=== PATIENT | male | born 1960 | race Caucasian/White ===

== ENCOUNTER 2019-10-20 09:14 | Emergency (ER) | payer MEDICAID ==
[~2019-10-20] VITALS: Ht 167.6 cm; Wt 75.0 kg
[2019-10-20] MEDS ORDERED: AMLO2.5T45 PO (09:22)
[2019-10-20 10:06] LABS: BASOPHILS % 0.7 % (0.0-2.0); EOSINOPHILS % 4.1 % (0.0-5.0); HEMATOCRIT. 39.2 % (42.0-52.0); HEMOGLOBIN. 13.2 g/dL (14.0-18.0); LYMPHOCYTES % 18.9 % (20.0-50.0); MEAN CORPUSCULAR VOLUME 89.2 fL (80.0-94.0); MEAN PLATELET VOLUME 8.5 fl (7.4-10.4); MONOCYTES % 8.6 % (2.0-8.0); NEUTROPHILS % 67.7 % (40.0-76.0); PLATELET 235 x1000/uL (130-400)
[2019-10-20 10:13] LABS: CHLORIDE 109 mEq/L (98-107)
[2019-10-20 11:03] LABS: CLARITY URINE CLEAR (CLEAR); COLOR URINE YELLOW (YELLOW); KETONES URINE NEGATIVE (NEGATIVE); LEUKOCYTE ESTERASE URINE NEGATIVE (NEGATIVE); NITRITE URINE NEGATIVE (NEGATIVE); OCCULT BLOOD URINE TRACE (NEGATIVE); PH URINE 5.5 (4.5-8.0); PROTEIN URINE 3+ (NEGATIVE); SPECIFIC GRAVITY URINE 1.016 (1.005-1.030); UROBILINOGEN URINE 0.2 E.U./dL (0.2-1.0)
[2019-10-20 12:18] VITALS: BP 167/89
== END 2019-10-20 12:22 | disposition home or self-care (01) ==
LOC: ER 09:14
DX: E11.65 Type 2 diabetes mellitus with hyperglycemia (principal); N28.9 Disorder of kidney and ureter, unspecified; R42 Dizziness and giddiness; I10 Essential (primary) hypertension
CPT/HCPCS: 36415; 71045; 80053; 81003; 85025; 99284

== ENCOUNTER 2022-03-31 09:12 | Emergency (ER) | payer MEDICAID ==
[~2022-03-31] VITALS: Ht 152.4 cm; Wt 68.0 kg
[~2022-03-31 09:12] MED LIST: AMLO2.5T45 PO
[2022-03-31 10:03] VITALS: BP 171/67
[2022-03-31] MEDS ORDERED: FAMOTIDINE 20MG/2ML VIAL IV STA (10:03)
[2022-03-31] MEDS ORDERED: MORPHINE SULFATE 4 MG/ML CPJ (NOT FOR IM USE) IV STA (10:03)
[2022-03-31] MEDS ORDERED: PANTOPRAZOLE SODIUM 40 MG/VIAL IV STA (10:03)
[2022-03-31] MEDS ORDERED: MAGNESIUM/ALUMINUM HYDROXIDE/SIMETHICONE 30ML UDC PO STA (10:03)
[2022-03-31] MEDS ORDERED: ONDANSETRON HCL 4MG/2ML INJ IV STA (10:03)
[2022-03-31] MEDS ORDERED: SODIUM CHLORIDE 0.9% 1,000 ML IV ONE (10:15)
[2022-03-31 12:10] LABS: BASOPHILS % 0.6 % (0.0-2.0); EOSINOPHILS % 3.4 % (0.0-5.0); HEMATOCRIT. 39.9 % (42.0-52.0); HEMOGLOBIN. 13.2 g/dL (14.0-18.0); LYMPHOCYTES % 13.7 % (20.0-50.0); MEAN CORPUSCULAR HEMOGLOBIN 30.3 pg (28.0-32.0); MEAN CORPUSCULAR VOLUME 91.1 fL (80.0-94.0); MEAN PLATELET VOLUME 8.5 fl (7.4-10.4); MONOCYTES % 11.7 % (2.0-8.0); NEUTROPHILS % 70.6 % (40.0-76.0); PLATELET 244 x1000/uL (130-400); RED BLOOD CELL COUNT 4.37 mill/uL (4.7-6.1); RED CELL DISTRIBUTION WIDTH 12.8 % (11.6-14.6)
[2022-03-31 12:18] LABS: CHLORIDE 112 mEq/L (98-107)
[2022-03-31] MEDS ORDERED: FAMOTIDINE 20MG/2ML VIAL IV NR (13:15)
[2022-03-31] MEDS ORDERED: FAMO-135 PO (13:46)
== END 2022-03-31 14:40 | disposition home or self-care (01) ==
LOC: ER 09:16
DX: R10.13 Epigastric pain (principal); K21.9 Gastro-esophageal reflux disease without esophagitis; I10 Essential (primary) hypertension; E11.9 Type 2 diabetes mellitus without complications
CPT/HCPCS: 36415; 71045; 74176; 80053; 83690; 84484; 85025; 93005; 96361; 96374; 96375; 99285; C9113; J2270; J2405; J3490; J7030; Z7610

== ENCOUNTER → 2022-04-20 | Day surgery (SDC) | payer MEDICAID ==
[~2022-04-20] VITALS: Ht 152.4 cm; Wt 68.0 kg
[~2022-04-20] MED LIST changes: +ATOR40TA70 PO; +BALANCED SALT IRRIG SOLN 15ML ONE; +BALANCED SALT IRRIG SOLN COMB1 500ML OP NR; +BENA-8 PO; +CIPROFLOXACIN 0.3% OPHTH SOLN 2.5ML ONE; +CYCLOPENTOLATE HCL 1% OPHTH DROPS 2ML ONE; +CYCLOPENTOLATE HCL 1% OPHTH DROPS 2ML RIGHTEYE ONE; +FAMO-135 PO; +FENTANYL CITRATE/PF 50MCG/ML 2ML VIAL ONE; +FURO40TA5 PO; +HYALURONATE SODIUM 10 MG/ML 0.55ML SYRINGE IO ONE; +INSU100I24 SQ; +LIDOCAINE HCL/PF 2% 20 MG/ML 10ML VIAL ONE; +MIDAZOLAM HCL 2 MG/2 ML VIAL ONE; +NEO/POLYMYX B SULF/DEXAMETH OPHTH OINT 3.5GM ONE; +PHENYLEPHRINE HCL 10% OPHTH DROPS 5ML ONE; +PHENYLEPHRINE HCL 10% OPHTH DROPS 5ML RIGHTEYE ONE; +PREDNISOLONE ACETATE 1% OPHTH DROPS 5ML ONE; +SODIUM CHLORIDE 0.9% 1,000 ML IV SCH; +TETRACAINE 0.5% OPHTH DROPS 4ML ONE; +TROPICAMIDE 1% OPHTH DROPS 15ML ONE; +TROPICAMIDE 1% OPHTH DROPS 15ML RIGHTEYE ONE
== END | disposition home or self-care (01) ==
LOC: OR 07:21
PROVIDERS: ATTEND Ophthalmology
DX: E11.36 Type 2 diabetes mellitus with diabetic cataract (principal); H25.89 Other age-related cataract; I10 Essential (primary) hypertension; E78.00 Pure hypercholesterolemia, unspecified; K21.9 Gastro-esophageal reflux disease without esophagitis; Z86.73 Personal history of transient ischemic attack (TIA), and cerebral infarction without residual deficits; Z20.822 Contact with and (suspected) exposure to COVID-19; Z79.4 Long term (current) use of insulin; Z79.899 Other long term (current) drug therapy; Z98.890 Other specified postprocedural states
CPT/HCPCS: 36415; 66984; 82962; 84132; 87426; C9803; J2250; J3010; J3490; V2632

== ENCOUNTER 2022-05-21 12:36 | Emergency (ER) | payer MEDICAID ==
[~2022-05-21] VITALS: Ht 152.4 cm; Wt 70.4 kg
[~2022-05-21 12:36] MED LIST changes: -BALANCED SALT IRRIG SOLN 15ML ONE; -BALANCED SALT IRRIG SOLN COMB1 500ML OP NR; -CIPROFLOXACIN 0.3% OPHTH SOLN 2.5ML ONE; -CYCLOPENTOLATE HCL 1% OPHTH DROPS 2ML ONE; -CYCLOPENTOLATE HCL 1% OPHTH DROPS 2ML RIGHTEYE ONE; -FENTANYL CITRATE/PF 50MCG/ML 2ML VIAL ONE; -HYALURONATE SODIUM 10 MG/ML 0.55ML SYRINGE IO ONE; -LIDOCAINE HCL/PF 2% 20 MG/ML 10ML VIAL ONE; -MIDAZOLAM HCL 2 MG/2 ML VIAL ONE; -NEO/POLYMYX B SULF/DEXAMETH OPHTH OINT 3.5GM ONE; -PHENYLEPHRINE HCL 10% OPHTH DROPS 5ML ONE; -PHENYLEPHRINE HCL 10% OPHTH DROPS 5ML RIGHTEYE ONE; -PREDNISOLONE ACETATE 1% OPHTH DROPS 5ML ONE; -SODIUM CHLORIDE 0.9% 1,000 ML IV SCH; -TETRACAINE 0.5% OPHTH DROPS 4ML ONE; -TROPICAMIDE 1% OPHTH DROPS 15ML ONE; -TROPICAMIDE 1% OPHTH DROPS 15ML RIGHTEYE ONE
[2022-05-21 15:44] LABS: BASOPHILS % 0.4 % (0.0-2.0); EOSINOPHILS % 3.5 % (0.0-5.0); HEMATOCRIT. 37.7 % (42.0-52.0); HEMOGLOBIN. 12.5 g/dL (14.0-18.0); LYMPHOCYTES % 23.1 % (20.0-50.0); MEAN CORPUSCULAR HEMOGLOBIN 30.1 pg (28.0-32.0); MEAN CORPUSCULAR VOLUME 90.6 fL (80.0-94.0); MEAN PLATELET VOLUME 7.9 fl (7.4-10.4); MONOCYTES % 8.9 % (2.0-8.0); NEUTROPHILS % 64.1 % (40.0-76.0); PLATELET 238 x1000/uL (130-400); RED BLOOD CELL COUNT 4.16 mill/uL (4.7-6.1); RED CELL DISTRIBUTION WIDTH 12.7 % (11.6-14.6)
[2022-05-21 15:53] LABS: CHLORIDE 114 mEq/L (98-107)
[2022-05-21 15:54] LABS: PROTHROMBIN TIME 10.5 sec (9.6-11.0)
[2022-05-21 16:13] LABS: BG BASE EXCESS -3.5 mmol/L (-2.0-2.0); BG CARBOXYHEMOGLOBIN 0.6 % (0.5-1.5); BG DEOXYHEMOGLOBIN 3.2 % (0.0-5.0); BG METHEMOGLOBIN 0.3 % (0.0-1.5); BG OXYGEN SATURATION 96.8 % (92.0-98.5); BG OXYHEMOGLOBIN 95.9 % (94.0-97.0); BG PCO2 41.4 mmHg (35.0-45.0); BG PH 7.344 (7.350-7.450); BG PO2 95.7 mmHg (75.0-100.0); BG SAMPLE SITE RIGHT RADIAL; BG VENT MODE ROOM AIR
[2022-05-21] MEDS ORDERED: TETRACAINE 0.5% OPHTH DROPS 4ML RIGHTEYE ONE (16:45)
[2022-05-21] MEDS ORDERED: SODIUM CHLORIDE 0.9% 1,000 ML IV ONE (18:30)
[2022-05-21] MEDS ORDERED: FUROSEMIDE 40MG/4ML VIAL IVP NR (18:30)
[2022-05-21] MEDS ORDERED: SODIUM POLYSTYRENE SULFONATE 15 G/60 ML BOT PO NR (18:30)
[2022-05-21] MEDS ORDERED: SODIUM BICARBONATE 8.4% 1 MEQ/ML 50ML SYR IV NR (18:30)
[2022-05-21 22:05] VITALS: BP 178/87
== END 2022-05-21 22:16 | disposition home or self-care (01) ==
LOC: ER 12:49
DX: H53.8 Other visual disturbances (principal); I10 Essential (primary) hypertension; E11.9 Type 2 diabetes mellitus without complications
CPT/HCPCS: 36415; 36600; 80048; 80053; 82375; 82805; 83880; 84484; 85025; 85610; 96361; 96374; 96375; 99284; J1940; J3490; Z7610

== ENCOUNTER 2022-08-15 18:58 | Emergency (ER) | payer MEDICAID, OTHER ==
[~2022-08-15] VITALS: Ht 149.9 cm; Wt 72.0 kg
[2022-08-15 19:14] VITALS: TEMP 98.1; O2SAT 98
[2022-08-15 21:15] VITALS: BP 173/77; PULSE 63; RESP 18
[2022-08-15] MEDS ORDERED: IBUPROFEN 400MG TABLET PO ONE (21:15)
[2022-08-15] MEDS ORDERED: ACETAMINOPHEN 325MG TABLET PO ONE (21:15)
[2022-08-15] MEDS ORDERED: TOPUD PO (22:03)
[2022-08-15] MEDS ORDERED: IBUP-2028 MT ×2 (22:03)
== END 2022-08-15 23:30 | disposition home or self-care (01) ==
LOC: ER 18:58
DX: S62.634A Displaced fracture of distal phalanx of right ring finger, initial encounter for closed fracture (principal); E11.9 Type 2 diabetes mellitus without complications; I10 Essential (primary) hypertension; W22.8XXA Striking against or struck by other objects, initial encounter; Y93.89 Activity, other specified; Y92.89 Other specified places as the place of occurrence of the external cause; Y99.8 Other external cause status
CPT/HCPCS: 29130; 73130; 99283

== ENCOUNTER 2024-11-10 07:54 | Emergency (ER) | payer MEDICARE, MEDICAID ==
[~2024-11-10] VITALS: Ht 167.6 cm; Wt 75.0 kg
[~2024-11-10 07:54] MED LIST changes: +TOPUD PO
[2024-11-10 08:01] VITALS: O2SAT 100
[2024-11-10 08:18] LABS: CLARITY URINE Clear (CLEAR); COLOR URINE YELLOW (YELLOW); LEUKOCYTE ESTERASE URINE NEGATIVE (NEGATIVE); NITRITE URINE NEGATIVE (NEGATIVE); OCCULT BLOOD URINE NEGATIVE (NEGATIVE)
[2024-11-10 08:29] LABS: BASOPHILS % 0.8 % (0.0-2.0); EOSINOPHILS % 3.3 % (0.0-5.0); HEMATOCRIT. 38.4 % (42.0-52.0); HEMOGLOBIN. 12.6 g/dL (14.0-18.0); LYMPHOCYTES % 22.8 % (20.0-50.0); MEAN PLATELET VOLUME 8.0 fl (7.4-10.4); MONOCYTES % 8.5 % (2.0-8.0); NEUTROPHILS % 64.6 % (40.0-76.0); PLATELET 230 x1000/uL (130-400); RED BLOOD CELL COUNT 4.24 mill/uL (4.7-6.1); RED CELL DISTRIBUTION WIDTH 12.9 % (11.6-14.6)
[2024-11-10] MEDS: MECLIZINE 25MG TABLET PO ONE (08:32)
[2024-11-10 08:42] LABS: CREATININE 2.3 mg/dL (0.6-1.3); UREA NITROGEN BLOOD 39.0 mg/dL (9-23)
[2024-11-10] MEDS ORDERED: SODIUM ZIRCONIUM CYCLOSILICATE 10GM/PACKET PO ONE (08:45)
[2024-11-10] MEDS ORDERED: MECL-299 MT (08:49)
[2024-11-10] MEDS: SODIUM ZIRCONIUM CYCLOSILICATE 10GM/PACKET PO NR (09:08)
[2024-11-10 09:49] VITALS: BP 128/61; PULSE 59; RESP 18; TEMP 36.7; O2SAT 100
== END 2024-11-10 10:00 | disposition home or self-care (01) ==
LOC: ER 07:54
DX: R42 Dizziness and giddiness (principal); I63.549 Cerebral infarction due to unspecified occlusion or stenosis of unspecified cerebellar artery; I10 Essential (primary) hypertension; E11.29 Type 2 diabetes mellitus with other diabetic kidney complication; N28.9 Disorder of kidney and ureter, unspecified; Z79.899 Other long term (current) drug therapy
CPT/HCPCS: 99284; 70450; 80048; 81003; 85025; 36415; J8597